=== PATIENT | female | born 1945 | race Caucasian/White ===

== ENCOUNTER 2016-11-26 10:25 | Day surgery (SDC) | payer OTHER ==
--- NOTE | 2016-10-09 10:55 | HP ---
DATE OF ADMISSION: 10/15/2016 DATE OF DICTATION: 09/02/2016 DATE OF SURGERY: Undetermined BRIEF HISTORY: This is a 71-year-old female who was evaluated at [facility] with a history of episodic abdominal discomfort most localized to the right upper quadrant. At that time, she underwent a CAT scan of the abdomen and pelvis. Common CT demonstrated findings consistent with cholelithiasis without evidence of acute cholecystitis. Patient states she has episodic pain after eating occasionally. The pain is localized to the right upper quadrant and mid back. It is short lasting (less than 6 hours). It usually spontaneously resolves. At time she is left with some discomfort the following morning. She has had no change in stool color, urine color. No fever, chills, or sweats. PAST MEDICAL HISTORY: Significant for coronary artery disease, hypertension, hypercholesterolemia. Patient has history of renal cancer status post right nephrectomy. She has hypothyroidism as well. PAST SURGICAL HISTORY: Right nephrectomy. ALLERGIES: None. MEDICATION: Spironolactone, potassium, digoxin, Lasix, carvedilol, , Avastatin and aspirin. SOCIAL HISTORY: Patient denies tobacco and alcohol use. PHYSICAL EXAMINATION: HEENT: No icterus. Heart: Regular rhythm. Abdomen: Soft. Nontender. Nondistended. IMPRESSION/PLAN: Biliary colic, chronic cholecystitis, cholelithiasis: This is a 71-year-old female who based on history appears to have a history of biliary colic. At this time, since she is symptomatic, I would recommend proceeding with a laparoscopic cholecystectomy. The indications, alternatives, complications discussed. Questions answered. Will plan to obtain written consent on the day of surgery. SOY KLINE M.D. NILS/[id number] cc: Chetan Yee M.D., [address] [place] [address],
[2016-11-21 17:20] VITALS: BMI 27.4
[2016-11-26] MEDS ORDERED: ERTAPENEM SODIUM 1 GM VIAL ONE (11:16)
[2016-11-26] MEDS ORDERED: LEVOFLOXACIN 500 MG IVPB 100 ML IVPB ONE (11:16)
[2016-11-26] MEDS ORDERED: morphine CARPU-JECT 4 MG/1 ML DISP.SYRIN IVPB PRN (11:36)
[2016-11-26] MEDS ORDERED: ONDANSETRON 4 MG/2 ML VIAL IVPB PRN (11:36)
[2016-11-26] MEDS ORDERED: IBUPROFEN 800 MG/8 ML IJ IVPB PRN (11:37)
[2016-11-26] MEDS ORDERED: oxyCODONE HCL 5 MG TABLET PO PRN (11:37)
[2016-11-26] MEDS ORDERED: ERTAPENEM SODIUM 1 GM VIAL IVPB ONE (14:00)
[2016-11-26] MEDS ORDERED: GLYCOPYRROLATE 0.2 MG/1 ML VIAL ONE (14:22)
[2016-11-26] MEDS ORDERED: NEOSTIGMINE METHYLSULFATE 0.5 MG/ML - 10 ML MDV ONE (14:22)
--- NOTE | 2016-11-26 16:04 | PN ---
Progress Note, Physician Chief Complaint: The patient was seen in the recovery room post LAP YEISON. Discussed with SYLVESTER Dumont. Pain is controlled History of Present Illness: Right nephrectomy due to right kidney cancer. HTN. Chronic A.Fib on Eliquis. CHF. HLD DM 2. Meningeoma. Hyperthyroidism controlled on Methimazole. OA knees - Current Medication List Current Medications: Active Medications Acetaminophen (Tylenol -) 650 mg PO Q6H PRN PRN Reason: FEVER OR PAIN Fentanyl (Sublimaze Injection -) 50 mcg IVPUSH [id number] PRN PRN Reason: PAIN Stop: 11/29/16 14:20 Potassium Chloride/Dextrose/Sod Cl (D5-1/2ns+20 Meq Kcl -) 1,000 mls @ 100 mls/ hr IV ASDIR ELLIOTT Ibuprofen (Caldolor Injection -) 800 mg IVPB Q6H PRN PRN Reason: PAIN Morphine Sulfate (Morphine Injection -) 4 mg IVPB Q3H PRN PRN Reason: SEVERE PAIN Ondansetron HCl (Zofran Injection) 4 mg IVPB Q6H PRN PRN Reason: NAUSEA Oxycodone HCl (Roxicodone -) 5 mg PO Q3H PRN PRN Reason: MODERATE PAIN - Objective Vital Signs: Vital Signs Temperature 97.5 F L 11/26/16 11:03 Pulse Rate 92 H 11/26/16 11:03 Respiratory Rate 18 11/26/16 11:03 Blood Pressure 128/82 11/26/16 11:03 O2 Sat by Pulse Oximetry (%) 98 11/26/16 11:03 Constitutional: Yes: Calm, Moderate Distress. No: Ashen Eyes: Yes: Conjunctiva Clear, EOM Intact HENT: Yes: Atraumatic, Normocephalic. No: Drooling, Epistaxis Neck: Yes: Supple, Trachea Midline. No: Lymphadenopathy Cardiovascular: Yes: Pulse Irregular (A.Fib), S1, S2. No: Tachycardia, JVD, Rub Respiratory: Yes: Regular, CTA Bilaterally Gastrointestinal: Yes: Hypoactive Bowel Sounds, Tenderness (postop). No: Normal Bowel Sounds ...Rectal Exam: Yes: Deferred Genitourinary: No: Anuria, Bladder Distention Breast(s): Yes: WNL Musculoskeletal: Yes: WNL Extremities: No: Calf Tenderness, Cold, Cyanosis Edema: No Integumentary: Yes: WNL Wound/Incision: Yes: Clean/Dry Neurological: Yes: Alert, Oriented. No: Aphasia ...Motor Strength: WNL Psychiatric: Yes: WNL Problem List - Problems (1) A-fib Assessment/Plan: Control V-rate. Re-start Eliquis 09/28/16 as discussed with surgery Code(s): I48.91 - UNSPECIFIED ATRIAL FIBRILLATION Qualifiers: Atrial fibrillation type: chronic Qualified Code(s): I48.2 - Chronic atrial fibrillation (2) Diabetes 1.5, managed as type 2 Assessment/Plan: BGM and control glucose with Novolog. ADA diet when starts eating. Code(s): E10.9 - TYPE 1 DIABETES MELLITUS WITHOUT COMPLICATIONS
[2016-11-26] MEDS: D5-1/2NS+20 MEQ KCL - 1,000 ML IV SCH ×3 (17:00→23:43)
[2016-11-26] MEDS: INSULIN SLIDING SCALE (NOVOLOG) 1 VIAL SQ SCH ×2 (18:06→21:18)
--- NOTE | 2016-11-26 18:55 | OP ---
DATE OF OPERATION: 11/26/2016 PREOPERATIVE DIAGNOSES: 1. Symptomatic cholelithiasis. 2. Chronic cholecystitis. 3. Chronically incarcerated umbilical hernia. POSTOPERATIVE DIAGNOSES: 1. Symptomatic cholelithiasis. 2. Chronic cholecystitis. 3. Chronically incarcerated umbilical hernia. PROCEDURES: 1. Laparoscopic cholecystectomy. 2. Peritoneal lavage. SURGEON: Boni Bourgeois MD MOTORCYLES FINAL INSPECTOR: Etienne Butler MD ANESTHESIA: Cathy St MD (General) ESTIMATED BLOOD LOSS: Minimal. SPECIMEN: Gallbladder. INDICATIONS: This is a 71-year-old female symptomatic from her biliary disease. She now wishes to have her gallbladder removed. PROCEDURE IN DETAIL: The patient identified and appropriately positioned on the operating table. After placement of general anesthesia, she was prepped and draped in the usual sterile fashion. In infraumbilical incision was made deep through subcutaneous tissue. The fascia was divided sharply. Peritoneum was incised and under direct visualization the Veress needle followed by structural needle placed. The remaining ports were placed under direct vision as well. The gallbladder was identified in the right upper quadrant. There were adhesions of omentum to the body and dome of the gallbladder. The gallbladder had the consistency of chronic cholecystitis. These adhesions were taken down sharply. The gallbladder was reflected over the dome of the liver and going from lateral to medial, the neck and infundibulum of the gallbladder were followed by the cystic artery. This patient's cystic artery ran anterior to the cystic duct. The artery was subsequently isolated, clipped and divided. The duct was isolated, clipped and then divided as well. The gallbladder was removed from the liver bed with electrocautery. Prior to completely removal, the liver bed was irrigated and the operative field examined and noted to be hemostatic. It was brought out through the umbilical port site. The right upper quadrant was copiously irrigated with warm saline. The irrigant retrieved was noted to be clear. The ports were removed. The port sites were hemostatic. The fascia at the infraumbilical port site was reapproximated with 0 Vicryl suture. All skin was closed with 4-0 subcuticular Biosyn followed by Dermabond. At the end of the case, sponge and needle counts were correct. Brief operative note is handwritten on the preprinted form. Amara TAYLOR [id number] MTDD
[2016-11-27] MEDS: ACETAMINOPHEN 325 MG TABLET (FP) PO PRN ×2 (02:07→13:15)
[2016-11-27] MEDS: INSULIN SLIDING SCALE (NOVOLOG) 1 VIAL SQ SCH ×2 (06:19→11:58)
[2016-11-27] MEDS ORDERED: METHIMAZOLE 10 MG TABLET (FP) PO SCH (10:00)
[2016-11-27] MEDS ORDERED: CARVEDILOL 25 MG TABLET (FP) PO SCH (10:00)
[2016-11-27] MEDS ORDERED: DIGOXIN 0.125 MG TABLET (FP) PO SCH (10:00)
[2016-11-27] MEDS ORDERED: PT OWN MED DRAWER 7, Y5N ONE (10:05)
[2016-11-27 10:06] VITALS: PULSE 97
--- NOTE | 2016-11-27 13:02 | PN ---
Progress Note (short form) - Note Progress Note: Anesthesia Post op Pt seen and examined S;Alert and awake O: Vital Signs Temperature 98.5 F 11/27/16 06:00 Pulse Rate 97 H 11/27/16 10:06 Respiratory Rate 18 11/27/16 06:00 Blood Pressure 133/78 11/27/16 06:00 O2 Sat by Pulse Oximetry (%) 100 11/26/16 17:00 A/P:Current Active Problems A-fib (Acute) Diabetes 1.5, managed as type 2 (Acute) s/p lap romain FDoing well post op Continue current care Brad Hurtado MD
[2016-11-27 13:04] VITALS: BP 143/77; TEMP 98.9
--- NOTE | 2016-11-28 13:51 | PATH ---
Surgical Pathology Report Patient Name: TAMIKO AGEE [facility]. Rec. #: [id number] /Age/Gender: 1945 (Age: 71) / F Account: [id number] Location: AMBULATORY SURG Taken: 11/27/2016 Received: 11/27/2016 Reported: 11/28/2016 Physicians: Boni Bourgeois Specimen(s) Received GALLBLADDER Clinical History Cholelithiasis Final Diagnosis GALLBLADDER, CHOLECYSTECTOMY: CHRONIC CHOLECYSTITIS AND CHOLELITHIASIS. Electronically Signed Tong Gutiérrez M.D. Gross Description Received in formalin, labeled "gallbladder" is a 9.7 x 3.4 x 3.4 cm gallbladder with a 0.3 cm in length portion of cystic duct attached. The outer surface is herbert green and varies from smooth to shaggy. The lumen contains green, tenacious bile as well as multiple black, irregular to fragmented choleliths ranging from 0.2-0.9 cm in greatest dimension. The mucosa is dark green and velvety. The wall of the gallbladder averages 0.1 cm. in thickness. Halver Machine Operator sections are submitted in one cassette. /11/27/201611/27/2016
== END 2016-11-27 13:58 | disposition home or self-care (01) ==
LOC: JASU-SURG 10:25 → JASUSAT 10:25 → J8W 17:44 → JASUSAT 11-27 13:58
PROVIDERS: ATTEND Surgery
PROC: 0FT44ZZ Resection of Gallbladder, Percutaneous Endoscopic Approach (ICD-10-PCS; principal; 2016-11-26 12:00)
DX: K80.10 Calculus of gallbladder with chronic cholecystitis without obstruction (principal); K42.0 Umbilical hernia with obstruction, without gangrene; I48.91 Unspecified atrial fibrillation; Z79.01 Long term (current) use of anticoagulants; E11.9 Type 2 diabetes mellitus without complications; Z85.528 Personal history of other malignant neoplasm of kidney; E05.90 Thyrotoxicosis, unspecified without thyrotoxic crisis or storm
CPT/HCPCS: 88304-TC; 94010; 94760

== ENCOUNTER 2021-09-24 11:25 | Emergency (ER) | payer OTHER ==
[2021-09-24 11:35] VITALS: BMI 31.8
[2021-09-24] MEDS ORDERED: ACETAMINOPHEN 325 MG TABLET (FP) PO ONE (13:23)
[2021-09-24] MEDS ORDERED: LIDOCAINE 5% TOPICAL PATCH TP ONE (13:23)
[2021-09-24] MEDS ORDERED: ACETAMINOPHEN 325 MG TABLET (FP) ONE (13:47)
[2021-09-24] MEDS ORDERED: LIDOCAINE 5% TOPICAL PATCH ONE (13:47)
[2021-09-24 15:06] LABS: BASO % 0.4 % (0-2.0); EOS % 1.5 % (0-4.5); LYMPH % 21.6 % (8-40); MCH 29.1 pg (25.7-33.7); MCHC 32.5 g/dl (32.0-36.0); MEAN CELL VOLUME 89.6 fl (80-96); MEAN PLT VOLUME 10.3 fl (7.5-11.1); MONO % 6.7 % (3.8-10.2); NEUT % 69.8 % (42.8-82.8); PLATELET COUNT 154 10^3/uL (134-434); RBC 4.47 M/mm3 (3.60-5.2); RDW 14.6 % (11.6-15.6); WHITE BLOOD COUNT 6.2 K/mm3 (4.0-10.0)
[2021-09-24 15:25] LABS: INR 1.06 (0.83-1.09); PROTHROMBIN TIME (PATIENT) 12.2 SEC (9.7-13.0)
[2021-09-24 15:26] LABS: CALCIUM 9.5 mg/dL (8.5-10.1); MAGNESIUM 2.5 mg/dL (1.8-2.4)
[2021-09-24 15:27] LABS: BLOOD UREA NITROGEN 23.4 mg/dL (7-18)
[2021-09-24 15:28] LABS: ACTIVATED PTT 31.6 SECONDS (25.2-36.5)
[2021-09-24 15:29] LABS: CREATININE 1.2 mg/dL (0.55-1.3)
[2021-09-24 15:31] LABS: BILIRUBIN,TOTAL 0.7 mg/dL (0.2-1); TOT PROT 7.1 g/dl (6.4-8.2)
[2021-09-24 16:27] VITALS: BP 149/66; PULSE 82; TEMP 98.9
[2021-09-25] MEDS ORDERED: LIDOCAINE PATCH REMOVAL MC SCH (01:30)
== END 2021-09-24 16:34 | disposition home or self-care (01) ==
LOC: JER 11:25
DX: S09.90XA Unspecified injury of head, initial encounter (principal); W19.XXXA Unspecified fall, initial encounter
CPT/HCPCS: 36415; 70450-TC; 72125-TC; 72128-TC; 80053; 83735; 84484; 85025; 85610; 85730; 93005; 93010; 99285-25